=== PATIENT | male | born 1955 | race Two or more races ===

== ENCOUNTER 2019-02-01 13:08 | Outpatient (CLI) | payer MEDICARE, BC ==
--- NOTE | 2019-02-02 10:13 | Diagnostic Imaging Report ---
Indication: Pain, status post trauma 2 weeks ago Technique: 3 views right hand Comparison: none Findings: The bones are somewhat osteoporotic. There is a fracture deformity of the base of the first distal phalanx. This is not optimally demonstrated, acuity is indeterminate. No other evidence of acute fracture. No dislocations. The joint spaces are preserved. Impression: Acuity-indeterminate fracture of the base of the first distal phalanx. Dedicated first digit radiographs may be useful for better visualization Findings and recommendation discussed by phone with Quentin from Dr. Diane's office at the time of interpretation
== END 2019-02-01 15:08 | disposition home or self-care (01) ==
LOC: RAD 13:08
DX: M79.89 Other specified soft tissue disorders (principal)

== ENCOUNTER 2019-02-04 12:19 | Outpatient (CLI) | payer MEDICARE, BC ==
--- NOTE | 2019-02-04 13:57 | Diagnostic Imaging Report ---
Indication: Pain, slammed thumb in car door 2 weeks ago Technique: 3 views of the right thumb Comparison: Hand radiograph dated 02/01/2019 Findings: Again demonstrated is a fracture deformity of the base of the first distal phalanx. Fracture line runs from the articular surface to the posterior margin of the distal phalanx. Posterior fragment is posteriorly displaced. The margins of the fracture line are somewhat indistinct. There is very mild degenerative change of the first metacarpal phalangeal joint, with slight narrowing of the joint space and some degenerative remodeling of the articular surfaces. There may be slight medial subluxation of the proximal phalanx Impression: Positive for fracture the base of the first distal phalanx, as described. Indistinct appearance of the fracture line margins is consistent with the subacute nature of the clinically described injury Degenerative changes of the first metacarpal phalangeal joint
== END 2019-02-04 14:19 | disposition home or self-care (01) ==
LOC: RAD 12:19
DX: M79.644 Pain in right finger(s) (principal); S62.521A Displaced fracture of distal phalanx of right thumb, initial encounter for closed fracture; X58.XXXA Exposure to other specified factors, initial encounter; Y92.9 Unspecified place or not applicable